=== PATIENT | male | born 1950 | race Caucasian/White ===

== ENCOUNTER 2017-10-13 12:01 | Observation (INO) | payer OTHER, MEDICARE ==
[~2017-10-13] VITALS: Ht 182.9 cm; Wt 96.9 kg
[~2017-10-13 12:01] MED LIST: CETI10TA18 PO; CITA20TA11 PO; DULO-31 PO; HYDR-565 PO; LISI40TA4 PO; MIRT15TA8 PO; SIMV20TA PO; VAL5T PO
[2017-10-13 12:29] LABS: BASOPHILS # (AUTO) 0.1 X10'3 (0-0.2); BASOPHILS % (AUTO) 0.7 % (0-1); EOSINOPHILS # (AUTO) 0.5 X10'3 (0-0.9); EOSINOPHILS % (AUTO) 4.9 % (0-6); HEMATOCRIT 48.6 % (42.0-52.0); HEMOGLOBIN 17.1 g/dl (14.0-17.9); LYMPHOCYTES # (AUTO) 2.6 X10'3 (1.1-4.8); LYMPHOCYTES % (AUTO) 27.6 % (21-51); MEAN CORPUSCULAR HEMOGLOBIN 33.1 PG (27.0-31.0); MEAN CORPUSCULAR HGB CONC 35.1 % (33.0-36.5); MEAN CORPUSCULAR VOLUME 94.4 FL (78-98); MEAN PLATELET VOLUME 7.8 FL (7.4-10.4); MONOCYTES % (AUTO) 10.4 % (2-12); NEUTROPHILS # (AUTO) 5.3 X10'3 (1.8-7.7); NEUTROPHILS % (AUTO) 56.4 % (42-75); PLATELET COUNT 209 X10'3 (140-440); RED BLOOD COUNT 5.15 X10'6 (4.70-6.10); RED CELL DISTRIBUTION WIDTH 13.3 % (11.5-14.5); WHITE BLOOD COUNT 9.5 X10'3 (4.5-11.0)
[2017-10-13 12:40] LABS: PARTIAL THROMBOPLASTIN TIME 25 SECONDS (22-32); PROTHROMBIN TIME 10.3 SECONDS (9.0-12.0)
[2017-10-13 12:44] LABS: ALANINE AMINOTRANSFERASE 72 U/L (12-78); ALBUMIN 4.3 G/DL (3.4-5.0); ALBUMIN/GLOBULIN RATIO 1.4 (1.1-1.5); ALKALINE PHOSPHATASE 83 IU/L (46-116); ANION GAP 9 (8-16); ASPARTATE AMINO TRANSFERASE 27 U/L (10-37); BILIRUBIN,TOTAL 0.9 MG/DL (0.1-1.0); BLOOD UREA NITROGEN 8 MG/DL (7-18); BUN/CREATININE RATIO 7.5 (5.4-32.0); CALCIUM 11.7 MG/DL (8.5-10.1); CHLORIDE 100 MMOL/L (99-107); CREATININE 1.06 MG/DL (0.60-1.10); GLUCOSE 150 MG/DL (70-104); POTASSIUM 3.8 MMOL/L (3.5-5.1); SODIUM 142 MMOL/L (135-145); TOTAL CARBON DIOXIDE 32.7 MMOL/L (24-32); TOTAL PROTEIN 7.4 G/DL (6.4-8.2); eGFR 70 ML/MIN
[2017-10-13] MEDS ORDERED: nitroGLYCERIN 1gm ointment UD TP ONE (13:00)
[2017-10-13] MEDS ORDERED: morphine 4 MG/ML inj SYRINge IV ONE (13:45)
[2017-10-13] MEDS ORDERED: ondansetron/PF 4mg/2ml inj IV ONE (14:00)
[2017-10-13] MEDS ORDERED: aspirin 325mg tablet PO ONE (17:25)
[2017-10-13] MEDS ORDERED: magnesium hydroxide 30ml (MOM) UD suspension PO PRN (17:25)
[2017-10-13] MEDS ORDERED: morphine 2 MG/ML inj. syringe IV PRN (17:25)
[2017-10-13] MEDS ORDERED: acetaminophen 325mg tablet PO PRN ×2 (17:25)
[2017-10-13] MEDS ORDERED: nitroGLYCERIN 0.4mg SUBLingual tab SL PRN (17:25)
[2017-10-13] MEDS ORDERED: HYDROcodone/acetaminophen 10/325mg tab PO ONE (17:45)
[2017-10-13] MEDS ORDERED: diazepam 5mg tablet PO PRN (18:30)
[2017-10-13 19:11] LABS: CHOL/HDL RATIO 4.7 (0.00-4.99); CHOLESTEROL 126 MG/DL (0-200); HDL CHOLESTEROL 27 MG/DL (35-60); LDL CHOLESTEROL 65 MG/DL (50-100); TRIGLYCERIDES 237 MG/DL (20-135)
[2017-10-13] MEDS: HYDROcodone/acetaminophen 10/325mg tab PO SCH (20:00)
[2017-10-13] MEDS: carVEDilol 3.125mg tablet PO SCH (20:20)
[2017-10-13] MEDS: morphine 2 MG/ML inj. syringe IV PRN ×2 (20:22→23:45)
[2017-10-13] MEDS ORDERED: mirtazapine 15mg tablet PO SCH (21:00)
[2017-10-13 21:10] VITALS: BP 138/89
[2017-10-13 22:00] VITALS: BP 168/93
[2017-10-13] MEDS: heparin, porcine 5000 units/ml vial SQ SCH (23:43)
[2017-10-13] MEDS: hyDRALAzine 10mg tablet PO SCH (23:44)
[2017-10-14 02:00] VITALS: BP 141/88
[2017-10-14] MEDS: morphine 2 MG/ML inj. syringe IV PRN ×2 (02:02→05:42)
[2017-10-14 06:00] VITALS: BP_SYST 125; BP_SYST 168; BP_DIAS 71; BP_DIAS 98
[2017-10-14 06:24] LABS: BASOPHILS % (AUTO) 0.3 % (0-1); EOSINOPHILS # (AUTO) 0.3 X10'3 (0-0.9); EOSINOPHILS % (AUTO) 3.6 % (0-6); HEMATOCRIT 44.7 % (42.0-52.0); HEMOGLOBIN 15.9 g/dl (14.0-17.9); LYMPHOCYTES # (AUTO) 2.4 X10'3 (1.1-4.8); MEAN CORPUSCULAR HEMOGLOBIN 33.1 PG (27.0-31.0); MEAN CORPUSCULAR HGB CONC 35.7 % (33.0-36.5); MEAN CORPUSCULAR VOLUME 92.9 FL (78-98); MEAN PLATELET VOLUME 8.2 FL (7.4-10.4); MONOCYTES # (AUTO) 0.8 X10'3 (0-0.9); MONOCYTES % (AUTO) 9.4 % (2-12); NEUTROPHILS # (AUTO) 5.2 X10'3 (1.8-7.7); NEUTROPHILS % (AUTO) 59.7 % (42-75); PLATELET COUNT 184 X10'3 (140-440); RED BLOOD COUNT 4.81 X10'6 (4.70-6.10); RED CELL DISTRIBUTION WIDTH 13.1 % (11.5-14.5); WHITE BLOOD COUNT 8.8 X10'3 (4.5-11.0)
[2017-10-14 07:15] LABS: ALANINE AMINOTRANSFERASE 91 U/L (12-78); ALBUMIN 3.9 G/DL (3.4-5.0); ALBUMIN/GLOBULIN RATIO 1.3 (1.1-1.5); ALKALINE PHOSPHATASE 73 IU/L (46-116); ANION GAP 10 (8-16); ASPARTATE AMINO TRANSFERASE 38 U/L (10-37); BLOOD UREA NITROGEN 10 MG/DL (7-18); BUN/CREATININE RATIO 9.7 (5.4-32.0); CALCIUM 9.8 MG/DL (8.5-10.1); CHLORIDE 101 MMOL/L (99-107); CREATININE 1.03 MG/DL (0.60-1.10); GLUCOSE 133 MG/DL (70-104); POTASSIUM 3.9 MMOL/L (3.5-5.1); SODIUM 141 MMOL/L (135-145); TOTAL CARBON DIOXIDE 29.9 MMOL/L (24-32); TOTAL PROTEIN 6.8 G/DL (6.4-8.2); eGFR 72 ML/MIN
[2017-10-14] MEDS ORDERED: lisinopril 20mg tablet PO SCH (08:00)
[2017-10-14] MEDS ORDERED: citalopram 20mg tablet PO SCH (08:00)
[2017-10-14] MEDS ORDERED: duloxetine 30mg CAPSULE.DR PO SCH (08:00)
[2017-10-14] MEDS ORDERED: docusate sod 250mg capsule PO SCH (08:00)
[2017-10-14] MEDS: HYDROcodone/acetaminophen 10/325mg tab PO SCH (08:00)
[2017-10-14] MEDS ORDERED: atorvastatin 10mg tablet PO SCH (08:00)
[2017-10-14] MEDS: heparin, porcine 5000 units/ml vial SQ SCH (08:01)
[2017-10-14] MEDS: hyDRALAzine 10mg tablet PO SCH (08:02)
[2017-10-14] MEDS: carVEDilol 3.125mg tablet PO SCH (08:03)
[2017-10-14 11:00] VITALS: BP 133/86
[2017-10-14] MEDS ORDERED: COR3.125T PO (14:30)
[2017-10-14] MEDS ORDERED: carVEDilol 3.125mg tablet PO ONE (14:45)
== END 2017-10-14 15:15 | disposition home or self-care (01) ==
LOC: ER 12:01 → ED HOLD 17:22 → EDBEDREQ 20:27 → PCU 3S 21:00
PROVIDERS: ADMIT Internal Medicine; ATTEND Internal Medicine
DX: R07.89 Other chest pain (principal); I10 Essential (primary) hypertension; E78.5 Hyperlipidemia, unspecified; F41.9 Anxiety disorder, unspecified; Z86.73 Personal history of transient ischemic attack (TIA), and cerebral infarction without residual deficits; Z87.891 Personal history of nicotine dependence; F43.10 Post-traumatic stress disorder, unspecified; Z85.528 Personal history of other malignant neoplasm of kidney; Z90.5 Acquired absence of kidney; R42 Dizziness and giddiness; M19.90 Unspecified osteoarthritis, unspecified site
CPT/HCPCS: 36415; 70450; 71045; 80053; 80061; 84484; 85025; 85610; 85730; 87070; 93005; 96372; 96374; 96375; 96376; 99285; G0378; J1644; J2270; J2405

== ENCOUNTER 2017-11-17 13:39 | Emergency (ER) | payer OTHER, MEDICARE ==
[~2017-11-17] VITALS: Ht 182.9 cm; Wt 113.6 kg
[~2017-11-17 13:39] MED LIST changes: -CETI10TA18 PO; +COR3.125T PO; -HYDR-565 PO
[2017-11-17 14:32] LABS: BASOPHILS # (AUTO) 0.1 X10'3 (0-0.2); BASOPHILS % (AUTO) 0.7 % (0-1); EOSINOPHILS # (AUTO) 0.3 X10'3 (0-0.9); EOSINOPHILS % (AUTO) 2.6 % (0-6); LYMPHOCYTES # (AUTO) 1.6 X10'3 (1.1-4.8); LYMPHOCYTES % (AUTO) 16.3 % (21-51); MEAN PLATELET VOLUME 7.7 FL (7.4-10.4); MONOCYTES # (AUTO) 0.8 X10'3 (0-0.9); MONOCYTES % (AUTO) 7.8 % (2-12); NEUTROPHILS # (AUTO) 7.2 X10'3 (1.8-7.7); NEUTROPHILS % (AUTO) 72.6 % (42-75); PLATELET COUNT 196 X10'3 (140-440); RED CELL DISTRIBUTION WIDTH 13.3 % (11.5-14.5); WHITE BLOOD COUNT 9.9 X10'3 (4.5-11.0)
[2017-11-17 14:42] LABS: PARTIAL THROMBOPLASTIN TIME 26 SECONDS (22-32); PROTHROMBIN TIME 10.1 SECONDS (9.0-12.0)
[2017-11-17 14:47] LABS: ALANINE AMINOTRANSFERASE 33 U/L (12-78); ALBUMIN 3.6 G/DL (3.4-5.0); ALKALINE PHOSPHATASE 92 IU/L (46-116); ANION GAP 10 (8-16); ASPARTATE AMINO TRANSFERASE 16 U/L (10-37); BILIRUBIN,TOTAL 0.8 MG/DL (0.1-1.0); BLOOD UREA NITROGEN 11 MG/DL (7-18); BUN/CREATININE RATIO 11.7 (5.4-32.0); CALCIUM 8.8 MG/DL (8.5-10.1); CHLORIDE 103 MMOL/L (99-107); CREATININE 0.94 MG/DL (0.60-1.10); GLUCOSE 141 MG/DL (70-104); MAGNESIUM 1.8 MG/DL (1.5-2.4); SODIUM 140 MMOL/L (135-145); TOTAL CARBON DIOXIDE 27.1 MMOL/L (24-32); TOTAL PROTEIN 7.1 G/DL (6.4-8.2); eGFR 80 ML/MIN
[2017-11-17 15:00] LABS: HEMATOCRIT 39.4 % (42.0-52.0); HEMOGLOBIN 13.8 g/dl (14.0-17.9); MEAN CORPUSCULAR HEMOGLOBIN 32.7 PG (27.0-31.0); MEAN CORPUSCULAR HGB CONC 35.1 % (33.0-36.5); MEAN CORPUSCULAR VOLUME 93.2 FL (78-98); RED BLOOD COUNT 4.23 X10'6 (4.70-6.10)
[2017-11-17] MEDS ORDERED: morphine 4 MG/ML inj SYRINge IV ONE ×2 (15:00→16:25)
[2017-11-17] MEDS ORDERED: furosemide 40mg/4ml inj IV ONE (16:20)
[2017-11-17] MEDS ORDERED: ipratropium/albuterol 3ml nebule NEB ONE (16:20)
[2017-11-17] MEDS ORDERED: dexamethasone 4mg tablet PO ONE (16:20)
[2017-11-17] MEDS ORDERED: HYDR-569 PO (16:24)
[2017-11-17] MEDS ORDERED: AZIT250T PO (16:24)
[2017-11-17] MEDS ORDERED: azithromycin 250mg tablet PO ONE (16:25)
[2017-11-17 18:24] VITALS: BP 146/96
== END 2017-11-17 18:27 | disposition home or self-care (01) ==
LOC: ER 13:40
DX: J40 Bronchitis, not specified as acute or chronic (principal); R07.1 Chest pain on breathing; I10 Essential (primary) hypertension; E78.00 Pure hypercholesterolemia, unspecified; Z86.73 Personal history of transient ischemic attack (TIA), and cerebral infarction without residual deficits; Z98.890 Other specified postprocedural states; Z79.899 Other long term (current) drug therapy
CPT/HCPCS: 36415; 71045; 80053; 83735; 83880; 84484; 85025; 85610; 85730; 93005; 94640; 94760; 96374; 96375; 96376; 99285; J1940; J2270; J7030; J8540

== ENCOUNTER 2019-04-19 19:59 | Observation (INO) | payer MEDICARE, OTHER ==
[~2019-04-19] VITALS: Ht 182.9 cm; Wt 100.9 kg
[~2019-04-19 19:59] MED LIST changes: +AZIT250T PO; -CITA20TA11 PO; +CITA20TA28 PO; +HYDR-4383 PO
[2019-04-19 20:22] LABS: BASOPHILS # (AUTO) 0.1 X10'3 (0-0.2); EOSINOPHILS # (AUTO) 0.4 X10'3 (0-0.9); EOSINOPHILS % (AUTO) 4.2 % (0-6); HEMATOCRIT 47.7 % (42.0-52.0); HEMOGLOBIN 16.7 g/dl (14.0-17.9); LYMPHOCYTES # (AUTO) 2.2 X10'3 (1.1-4.8); LYMPHOCYTES % (AUTO) 23.8 % (21-51); MEAN CORPUSCULAR HEMOGLOBIN 32.9 PG (27.0-31.0); MEAN CORPUSCULAR VOLUME 94.1 FL (78-98); MEAN PLATELET VOLUME 8.3 FL (7.4-10.4); MONOCYTES # (AUTO) 0.9 X10'3 (0-0.9); MONOCYTES % (AUTO) 9.2 % (2-12); NEUTROPHILS # (AUTO) 5.8 X10'3 (1.8-7.7); NEUTROPHILS % (AUTO) 61.8 % (42-75); PLATELET COUNT 237 X10'3 (140-440); RED BLOOD COUNT 5.07 X10'6 (4.70-6.10); RED CELL DISTRIBUTION WIDTH 13.5 % (11.5-14.5); WHITE BLOOD COUNT 9.3 X10'3 (4.5-11.0)
[2019-04-19 20:33] LABS: ALANINE AMINOTRANSFERASE 46 U/L (12-78); ALBUMIN 4.4 G/DL (3.4-5.0); ALBUMIN/GLOBULIN RATIO 1.3 (1.1-1.5); ALKALINE PHOSPHATASE 85 IU/L (46-116); ANION GAP 8 (8-16); ASPARTATE AMINO TRANSFERASE 19 U/L (10-37); BILIRUBIN,TOTAL 0.5 MG/DL (0.1-1.0); BLOOD UREA NITROGEN 11 MG/DL (7-18); BUN/CREATININE RATIO 10.5 (5.4-32.0); CALCIUM 9.1 MG/DL (8.5-10.1); CHLORIDE 106 MMOL/L (99-107); CREATININE 1.05 MG/DL (0.60-1.10); GLUCOSE 130 MG/DL (70-104); POTASSIUM 3.8 MMOL/L (3.5-5.1); SODIUM 144 MMOL/L (135-145); TOTAL CARBON DIOXIDE 29.7 MMOL/L (24-32); TOTAL PROTEIN 7.7 G/DL (6.4-8.2); eGFR 70 ML/MIN
[2019-04-19 20:34] LABS: PARTIAL THROMBOPLASTIN TIME 26 SECONDS (22-32)
[2019-04-19] MEDS ORDERED: ondansetron/PF 4mg/2ml inj IV ONE (22:40)
[2019-04-19] MEDS ORDERED: aspirin 81mg tab.chew PO ONE (22:40)
[2019-04-19] MEDS ORDERED: morphine 4 MG/ML inj SYRINge IV ONE (22:40)
[2019-04-19] MEDS ORDERED: nitroGLYCERIN 1gm ointment UD TP ONE (22:40)
[2019-04-19] MEDS ORDERED: HYDR-4353 PO (22:53)
[2019-04-20] VITALS (11 sets, daily range): BP systolic 125–160; BP diastolic 80–97
[2019-04-20] MEDS ORDERED: ondansetron/PF 4mg/2ml inj IV PRN (01:10)
[2019-04-20] MEDS ORDERED: diazepam 5mg tablet PO PRN (01:10)
--- NOTE | 2019-04-20 02:15 | NUR ---
Patient brought up to unit via gurney and was able to ambulate to bed. Pt still c/o chest pain and states it has not gone away since he came to the hospital. Vitals are stable
[2019-04-20] MEDS: normal saline 1000ml 1,000 ML IV SCH ×2 (02:25→21:06)
[2019-04-20] MEDS: HYDROcodone/acetaminophen 10/325mg tab PO PRN ×4 (02:34→19:34)
--- NOTE | 2019-04-20 06:52 | NUR ---
Problems reprioritized. Patient report given, questions answered & plan of care reviewed with RENETTA Palmer.
[2019-04-20] MEDS: heparin, porcine 5000 units/ml vial SQ SCH ×2 (07:58→19:33)
[2019-04-20] MEDS: atorvastatin 10mg tablet PO SCH (07:59)
[2019-04-20] MEDS: duloxetine 30mg CAPSULE.DR PO SCH (07:59)
[2019-04-20] MEDS: lisinopril 20mg tablet PO SCH (07:59)
[2019-04-20] MEDS: citalopram 20mg tablet PO SCH (07:59)
[2019-04-20 09:50] LABS: URINE AMPHETAMINE SCREEN NEGATIVE (Neg); URINE BARBITUATE SCREEN NEGATIVE (Neg); URINE BENZODIAZEPINES SCREEN POSITIVE (Neg); URINE CANNABINOID SCREEN NEGATIVE (Neg); URINE COCAINE SCREEN NEGATIVE (Neg); URINE METHADONE SCREEN NEGATIVE (Neg); URINE OPIATE SCREEN POSITIVE (Neg); URINE PHENCYCLIDINE SCREEN NEGATIVE (Neg)
[2019-04-20] MEDS ORDERED: metoprolol tartrate 1mg/ml inj IV PRN (10:55)
[2019-04-20] MEDS ORDERED: regadenoson 0.4mg/5ml syringe IV ONE (10:55)
[2019-04-20] MEDS ORDERED: aminophylline 250mg/10ml inj. IV PRN (10:55)
[2019-04-20] MEDS ORDERED: nitroGLYCERIN 0.4mg SUBLingual tab SL PRN (11:00)
--- NOTE | 2019-04-20 17:42 | NUR ---
Pt does not have ride home until tomorrow, Dr Almanzar aware.
--- NOTE | 2019-04-20 18:25 | NUR ---
Problems reprioritized. Patient report given, questions answered & plan of care reviewed with Ted JACKSON. Pt eating dinner, doing well. Talkative
[2019-04-20] MEDS ORDERED: mirtazapine 15mg tablet PO SCH (21:00)
[2019-04-21 05:45] LABS: BASOPHILS # (AUTO) 0.1 X10'3 (0-0.2); BASOPHILS % (AUTO) 0.9 % (0-1); EOSINOPHILS # (AUTO) 0.4 X10'3 (0-0.9); EOSINOPHILS % (AUTO) 5.1 % (0-6); HEMATOCRIT 44.1 % (42.0-52.0); HEMOGLOBIN 15.1 g/dl (14.0-17.9); LYMPHOCYTES # (AUTO) 2.3 X10'3 (1.1-4.8); LYMPHOCYTES % (AUTO) 31.5 % (21-51); MEAN CORPUSCULAR HEMOGLOBIN 32.6 PG (27.0-31.0); MEAN CORPUSCULAR HGB CONC 34.2 g/dL (33.0-36.5); MEAN CORPUSCULAR VOLUME 95.2 FL (78-98); MEAN PLATELET VOLUME 8.6 FL (7.4-10.4); MONOCYTES # (AUTO) 0.6 X10'3 (0-0.9); NEUTROPHILS # (AUTO) 3.9 X10'3 (1.8-7.7); NEUTROPHILS % (AUTO) 53.5 % (42-75); PLATELET COUNT 187 X10'3 (140-440); RED BLOOD COUNT 4.63 X10'6 (4.70-6.10); RED CELL DISTRIBUTION WIDTH 13.3 % (11.5-14.5); WHITE BLOOD COUNT 7.2 X10'3 (4.5-11.0)
[2019-04-21 05:58] LABS: ALANINE AMINOTRANSFERASE 41 U/L (12-78); ALBUMIN 3.7 G/DL (3.4-5.0); ALBUMIN/GLOBULIN RATIO 1.2 (1.1-1.5); ANION GAP 6 (8-16); ASPARTATE AMINO TRANSFERASE 17 U/L (10-37); BILIRUBIN,TOTAL 0.7 MG/DL (0.1-1.0); BLOOD UREA NITROGEN 9 MG/DL (7-18); BUN/CREATININE RATIO 8.8 (5.4-32.0); CALCIUM 8.5 MG/DL (8.5-10.1); CHLORIDE 106 MMOL/L (99-107); CREATININE 1.02 MG/DL (0.60-1.10); GLUCOSE 113 MG/DL (70-104); POTASSIUM 4.3 MMOL/L (3.5-5.1); SODIUM 142 MMOL/L (135-145); TOTAL CARBON DIOXIDE 30.1 MMOL/L (24-32); TOTAL PROTEIN 6.7 G/DL (6.4-8.2); eGFR 73 ML/MIN
[2019-04-21 06:03] LABS: ALKALINE PHOSPHATASE 72 IU/L (46-116)
--- NOTE | 2019-04-21 06:20 | NUR ---
Problems reprioritized. Patient report given, questions answered & plan of care reviewed with Caitlyn. Addendum: 04/21/19 at 0621 by Stoney Lazo RN Amended: Links added.
[2019-04-21] MEDS: duloxetine 30mg CAPSULE.DR PO SCH (08:13)
[2019-04-21] MEDS: lisinopril 20mg tablet PO SCH (08:13)
[2019-04-21] MEDS: atorvastatin 10mg tablet PO SCH (08:14)
[2019-04-21] MEDS: citalopram 20mg tablet PO SCH (08:14)
[2019-04-21] MEDS: heparin, porcine 5000 units/ml vial SQ SCH (08:14)
[2019-04-21] MEDS: HYDROcodone/acetaminophen 10/325mg tab PO PRN (08:20)
[2019-04-21 08:48] VITALS: BP 159/89
--- NOTE | 2019-04-21 10:07 | NUR ---
PT DISCHARGED IN STABLE CONDITION. LEFT FACILITY IN PRIVATE VEHICLE. FOLLOW UP INSTRUCTIONS GIVEN, ALL QUESTIONS ANSWERED. ALL BELONGINGS IN HAND. Addendum: 04/21/19 at 1007 by Geni Rodriges RN Amended: Links added.
== END 2019-04-21 10:00 | disposition home or self-care (01) ==
LOC: ER 20:00 → SUR 3N 04-20 02:06
PROVIDERS: ADMIT Internal Medicine; ATTEND Internal Medicine
DX: R07.89 Other chest pain (principal); I10 Essential (primary) hypertension; E78.00 Pure hypercholesterolemia, unspecified; F41.9 Anxiety disorder, unspecified; M19.90 Unspecified osteoarthritis, unspecified site; C64.9 Malignant neoplasm of unspecified kidney, except renal pelvis; Z86.73 Personal history of transient ischemic attack (TIA), and cerebral infarction without residual deficits
CPT/HCPCS: 36415; 71045; 78452; 80053; 80305; 84484; 85025; 85610; 85730; 87081; 93005; 93017; 93306; 96372; 96374; 96375; 99284; A9500; G0378; J1644; J2270; J2405; J2785; J7030

== ENCOUNTER 2019-04-28 12:34 | Emergency (ER) | payer MEDICARE, OTHER ==
[~2019-04-28 12:34] MED LIST changes: -AZIT250T PO; -COR3.125T PO; -HYDR-4383 PO; -VAL5T PO
== END 2019-04-28 13:32 | disposition left against medical advice (07) ==
LOC: ER 12:35
DX: R51 Headache (principal); Z53.21 Procedure and treatment not carried out due to patient leaving prior to being seen by health care provider

== ENCOUNTER 2019-07-13 15:54 | Emergency (ER) | payer MEDICARE, OTHER ==
[~2019-07-13] VITALS: Ht 185.4 cm; Wt 90.0 kg
[2019-07-13 16:02] VITALS: BP 135/76
[2019-07-13] MEDS ORDERED: proparacaine 0.5% ophthalmic drops 15ml EACHEYE ONE (16:10)
[2019-07-13] MEDS ORDERED: OFLO5DRO EACHEYE (16:51)
[2019-07-13] MEDS ORDERED: PRED5DRO23 OP (16:51)
== END 2019-07-13 17:21 | disposition home or self-care (01) ==
LOC: ER 15:54
DX: T86.840 Corneal transplant rejection (principal); H57.12 Ocular pain, left eye; E78.00 Pure hypercholesterolemia, unspecified; I10 Essential (primary) hypertension; F41.9 Anxiety disorder, unspecified; M19.90 Unspecified osteoarthritis, unspecified site; Z79.899 Other long term (current) drug therapy; Z86.73 Personal history of transient ischemic attack (TIA), and cerebral infarction without residual deficits; Z98.890 Other specified postprocedural states; Y92.89 Other specified places as the place of occurrence of the external cause
CPT/HCPCS: 99283

== ENCOUNTER 2020-03-18 12:39 | Observation (INO) | payer OTHER, MEDICARE ==
[~2020-03-18] VITALS: Ht 185.4 cm; Wt 108.0 kg
[~2020-03-18 12:39] MED LIST changes: +BENZ200C59 PO; +CEFU500T66 PO; -CITA20TA28 PO; +HYDR-4384 PO; +PRED20TA PO; +SERT25TA PO; -SIMV20TA PO; +VAL5T PO
[2020-03-18 13:00] LABS: BASOPHILS # (AUTO) 0.1 X10'3 (0-0.2); BASOPHILS % (AUTO) 0.8 % (0-1); EOSINOPHILS # (AUTO) 0.2 X10'3 (0-0.9); EOSINOPHILS % (AUTO) 3.2 % (0-6); HEMATOCRIT 50.4 % (42.0-52.0); HEMOGLOBIN 17.5 g/dl (14.0-17.9); LYMPHOCYTES # (AUTO) 2.1 X10'3 (1.1-4.8); MEAN CORPUSCULAR HEMOGLOBIN 32.9 PG (27.0-31.0); MEAN CORPUSCULAR HGB CONC 34.8 g/dL (33.0-36.5); MEAN CORPUSCULAR VOLUME 94.5 FL (78-98); MEAN PLATELET VOLUME 7.6 FL (7.4-10.4); MONOCYTES # (AUTO) 0.6 X10'3 (0-0.9); MONOCYTES % (AUTO) 8.1 % (2-12); NEUTROPHILS # (AUTO) 4.9 X10'3 (1.8-7.7); NEUTROPHILS % (AUTO) 61.9 % (42-75); PLATELET COUNT 240 X10'3 (140-440); RED BLOOD COUNT 5.33 X10'6 (4.70-6.10); RED CELL DISTRIBUTION WIDTH 12.6 % (11.5-14.5); WHITE BLOOD COUNT 7.9 X10'3 (4.5-11.0)
[2020-03-18 13:12] LABS: ALANINE AMINOTRANSFERASE 43 U/L (12-78); ALBUMIN 4.5 G/DL (3.4-5.0); ALBUMIN/GLOBULIN RATIO 1.3 (1.1-1.5); ALKALINE PHOSPHATASE 72 IU/L (46-116); ANION GAP 13 (8-16); ASPARTATE AMINO TRANSFERASE 22 U/L (10-37); BILIRUBIN,TOTAL 0.8 MG/DL (0.1-1.0); BLOOD UREA NITROGEN 11 MG/DL (7-18); BUN/CREATININE RATIO 10.7 (5.4-32.0); CALCIUM 9.1 MG/DL (8.5-10.1); CHLORIDE 104 MMOL/L (99-107); CREATININE 1.03 MG/DL (0.60-1.10); GLUCOSE 116 MG/DL (70-104); POTASSIUM 4.2 MMOL/L (3.5-5.1); SODIUM 141 MMOL/L (135-145); TOTAL CARBON DIOXIDE 24.3 MMOL/L (24-32); TOTAL PROTEIN 7.9 G/DL (6.4-8.2); eGFR 72 ML/MIN
[2020-03-18] MEDS ORDERED: AMLO5TAB PO (15:17)
[2020-03-18] MEDS ORDERED: normal saline 1000ml 1,000 ML IV SCH (15:18)
[2020-03-18] MEDS ORDERED: acetaminophen 325mg tablet PO PRN ×2 (15:20)
[2020-03-18] MEDS ORDERED: mag hydrox/Alum hydrox/simeth 30ml oral suspension PO PRN (15:20)
[2020-03-18] MEDS ORDERED: magnesium 2GM in 50ml NS 50 ML IV PRN (15:20)
[2020-03-18] MEDS ORDERED: HYDROcodone/acetaminophen 5mg/325mg tablet PO PRN (15:20)
[2020-03-18] MEDS ORDERED: magnesium hydroxide 30ml (MOM) UD suspension PO PRN (15:20)
[2020-03-18] MEDS ORDERED: metoclopramide 5 mg/ml inj IV PRN (15:20)
[2020-03-18] MEDS ORDERED: potassium Cl 20 mEq SR tablet PO PRN (15:20)
[2020-03-18] MEDS ORDERED: magnesium Cl slow-release 64mg tablet PO PRN (15:20)
[2020-03-18] MEDS ORDERED: magnesium 4gm in 100ml NS 100 ML IV PRN (15:20)
[2020-03-18] MEDS ORDERED: potassium CL 10mEq/100ml bag 100 ML IV PRN ×2 (15:20)
[2020-03-18] MEDS ORDERED: ondansetron/PF 4mg/2ml inj IV PRN (15:20)
[2020-03-18] MEDS ORDERED: bisacodyl 10mg suppository rectal RC PRN (15:20)
--- NOTE | 2020-03-18 15:45 | NUR ---
relieving RN for break, pt is being evaluated by hospitalist, started IV on rt hand on first attempt, 2nd troponin drawn
[2020-03-18] MEDS ORDERED: iohexol 350MG/ML 100ml bottle IV ONE (17:20)
--- NOTE | 2020-03-18 17:59 | NUR ---
Patient in room ED 3. I have received report from Rohan JACKSON and had the opportunity to ask questions and assume patient care.
[2020-03-18] MEDS ORDERED: HYDROCODONE BIT PO PRN (18:25)
[2020-03-18] MEDS ORDERED: ACETAMINOPHEN PO PRN (18:25)
[2020-03-18] MEDS ORDERED: diazepam 5mg tablet PO PRN (18:25)
--- NOTE | 2020-03-18 18:30 | NUR ---
Patient report given to Chel Gentile RN
--- NOTE | 2020-03-18 18:39 | NUR ---
Problems reprioritized. Patient report given, questions answered & plan of care reviewed with KRISHAN JACKSON.
[2020-03-18 19:00] VITALS: BP 166/103
[2020-03-18] MEDS: HYDROcodone/acetaminophen 10/325mg tab PO PRN ×2 (19:06→23:07)
[2020-03-18] MEDS: K and/or MAG REPLACEMENT MC SCH (20:53)
[2020-03-18] MEDS ORDERED: temazepam 15mg capsule PO PRN (21:00)
[2020-03-18] MEDS ORDERED: mirtazapine 15mg tablet PO SCH (21:00)
[2020-03-18 22:00] VITALS: BP 143/90
[2020-03-19] MEDS: HYDROcodone/acetaminophen 10/325mg tab PO PRN ×4 (04:50→18:50)
[2020-03-19 06:00] VITALS: BP 130/78
--- NOTE | 2020-03-19 06:25 | NUR ---
Patient in room ORTHO 4022. I have received report from Chel Rincon and had the opportunity to ask questions and assume patient care.
[2020-03-19 06:36] LABS: HEMATOCRIT 44.3 % (42.0-52.0); HEMOGLOBIN 15.4 g/dl (14.0-17.9); MEAN CORPUSCULAR HEMOGLOBIN 33.2 PG (27.0-31.0); MEAN CORPUSCULAR HGB CONC 34.7 g/dL (33.0-36.5); MEAN CORPUSCULAR VOLUME 95.8 FL (78-98); MEAN PLATELET VOLUME 7.9 FL (7.4-10.4); PLATELET COUNT 206 X10'3 (140-440); RED BLOOD COUNT 4.63 X10'6 (4.70-6.10); RED CELL DISTRIBUTION WIDTH 12.9 % (11.5-14.5); WHITE BLOOD COUNT 7.8 X10'3 (4.5-11.0)
[2020-03-19 06:54] LABS: ALBUMIN 3.8 G/DL (3.4-5.0); ANION GAP 5 (8-16); BLOOD UREA NITROGEN 15 MG/DL (7-18); BUN/CREATININE RATIO 12.7 (5.4-32.0); CALCIUM 8.9 MG/DL (8.5-10.1); CHLORIDE 103 MMOL/L (99-107); CREATININE 1.18 MG/DL (0.60-1.10); GLUCOSE 144 MG/DL (70-104); MAGNESIUM 2.1 MG/DL (1.5-2.4); POTASSIUM 3.4 MMOL/L (3.5-5.1); SODIUM 138 MMOL/L (135-145); TOTAL CARBON DIOXIDE 30.2 MMOL/L (24-32); eGFR 61 ML/MIN
[2020-03-19 08:00] VITALS: BP_SYST 121; BP_SYST 130; BP_SYST 147; BP_DIAS 78; BP_DIAS 80; BP_DIAS 93
[2020-03-19] MEDS ORDERED: duloxetine 30mg CAPSULE.DR PO SCH (08:00)
[2020-03-19] MEDS ORDERED: sertraline 25mg tablet PO SCH (08:00)
[2020-03-19] MEDS ORDERED: lisinopril 20mg tablet PO SCH (08:00)
[2020-03-19] MEDS ORDERED: amLODIPine 5mg tablet PO SCH ×2 (08:00)
[2020-03-19] MEDS: K and/or MAG REPLACEMENT MC SCH (08:00)
[2020-03-19] MEDS ORDERED: enoxaparin 40mg/0.4ml syringe SQ SCH (08:00)
[2020-03-19 09:00] VITALS: BP 143/89
[2020-03-19] MEDS: potassium Cl 20 mEq SR tablet PO PRN ×3 (09:10→18:49)
[2020-03-19 10:00] VITALS: BP 143/89
[2020-03-19] MEDS ORDERED: pneumococcal 23-VAL P-sac vacc 25 mcg/0.5ml vial IMVAC ONE (10:00)
--- NOTE | 2020-03-19 15:46 | NUR ---
PAGER ID: [phone] MESSAGE: Estela Mcgovern on ortho, Mr. Handy in [id number], no EEG report yet, pt anxious to be DC'd, just BREA
--- NOTE | 2020-03-19 17:24 | NUR ---
PAGER ID: [phone] MESSAGE: Estela Mcgovern on ortho, for Mr. Handy in 5410C, both tests were done, MRI results are coming
--- NOTE | 2020-03-19 18:19 | NUR ---
PAGER ID: [phone] MESSAGE: Estela Mcgovern on ortho, MRI report is being printed and brought to ortho
--- NOTE | 2020-03-19 18:23 | NUR ---
Problems reprioritized. Patient report given, questions answered & plan of care reviewed with Chel Rincon
--- NOTE | 2020-03-19 18:25 | NUR ---
Received report from Estela JACKSON, assumed care of patient.
--- NOTE | 2020-03-19 18:45 | NUR ---
MD Davidson at bedside with patient, new orders received for discharge.
--- NOTE | 2020-03-19 19:15 | NUR ---
Reviewed discharge paperwork with patient including, to continue current medications, [facility], if condition worsens to return to ER. Patient verbalized understanding at this time. PIV to right hand was discontinued and Tele box was removed. Patient stated he had all belongings prior to being escorted down to his waiting in front of the hospital without incident.
== END 2020-03-19 19:12 | disposition home or self-care (01) ==
LOC: ER 12:39 → ED HOLD 15:18 → ORTHO 4S 18:00
PROVIDERS: ADMIT Family Medicine; ATTEND Family Medicine
DX: R55 Syncope and collapse (principal); R07.89 Other chest pain; G47.33 Obstructive sleep apnea (adult) (pediatric); I10 Essential (primary) hypertension; F43.10 Post-traumatic stress disorder, unspecified; G40.909 Epilepsy, unspecified, not intractable, without status epilepticus; E78.00 Pure hypercholesterolemia, unspecified; J44.9 Chronic obstructive pulmonary disease, unspecified; F41.9 Anxiety disorder, unspecified; M19.90 Unspecified osteoarthritis, unspecified site; Z23 Encounter for immunization; Z86.73 Personal history of transient ischemic attack (TIA), and cerebral infarction without residual deficits; Z85.528 Personal history of other malignant neoplasm of kidney; Z85.820 Personal history of malignant melanoma of skin; Z99.89 Dependence on other enabling machines and devices; Z86.010 Personal history of colon polyps; Z90.5 Acquired absence of kidney; Z94.7 Corneal transplant status; Z90.49 Acquired absence of other specified parts of digestive tract; Z79.899 Other long term (current) drug therapy
CPT/HCPCS: 36415; 70496; 70498; 70544; 70551; 71045; 80048; 80053; 83735; 83880; 84484; 85025; 85027; 87081; 90732; 93005; 95816; 96360; 96361; 96372; 97161; 97530; 99285; G0009; G0378; J7030; Q9967; J1650

== ENCOUNTER 2020-08-06 11:20 | Emergency (ER) | payer OTHER, MEDICARE ==
[~2020-08-06] VITALS: Ht 182.9 cm; Wt 89.1 kg
[~2020-08-06 11:20] MED LIST changes: +AMLO5TAB PO; -BENZ200C59 PO; -CEFU500T66 PO; -PRED20TA PO
[2020-08-06 11:24] VITALS: BP 141/97
[2020-08-06] MEDS ORDERED: HYDR-4353 PO (12:57)
[2020-08-06] MEDS ORDERED: HYDROcodone/acetaminophen 10/325mg tab PO ONE (13:00)
== END 2020-08-06 13:30 | disposition home or self-care (01) ==
LOC: ER 11:21
DX: M25.552 Pain in left hip (principal); I11.0 Hypertensive heart disease with heart failure; E78.00 Pure hypercholesterolemia, unspecified; J44.9 Chronic obstructive pulmonary disease, unspecified; Z98.890 Other specified postprocedural states; Z79.899 Other long term (current) drug therapy; W18.39XA Other fall on same level, initial encounter; Y93.89 Activity, other specified; Y92.89 Other specified places as the place of occurrence of the external cause; Y99.8 Other external cause status
CPT/HCPCS: 73502; 99284

== ENCOUNTER 2021-01-05 20:47 | Emergency (ER) | payer OTHER, MEDICARE ==
[~2021-01-05] VITALS: Ht 182.9 cm; Wt 94.0 kg
[~2021-01-05 20:47] MED LIST changes: +DIAZ5TAB22 PO; +LISI40TA13 PO; -LISI40TA4 PO; -VAL5T PO
[2021-01-05 22:03] VITALS: BP 136/79
[2021-01-05 22:47] LABS: BASOPHILS # (AUTO) 0.1 X10'3 (0-0.2); BASOPHILS % (AUTO) 0.7 % (0-1); EOSINOPHILS # (AUTO) 0.2 X10'3 (0-0.9); EOSINOPHILS % (AUTO) 2.7 % (0-6); HEMATOCRIT 46.3 % (42.0-52.0); HEMOGLOBIN 16.3 g/dl (14.0-17.9); MEAN CORPUSCULAR HEMOGLOBIN 32.2 PG (27.0-31.0); MEAN CORPUSCULAR HGB CONC 35.2 g/dL (33.0-36.5); MEAN CORPUSCULAR VOLUME 91.4 FL (78-98); MEAN PLATELET VOLUME 8.1 FL (7.4-10.4); MONOCYTES # (AUTO) 0.8 X10'3 (0-0.9); MONOCYTES % (AUTO) 9.1 % (2-12); NEUTROPHILS % (AUTO) 65.5 % (42-75); PLATELET COUNT 260 X10'3 (140-440); RED BLOOD COUNT 5.07 X10'6 (4.70-6.10); RED CELL DISTRIBUTION WIDTH 13.7 % (11.5-14.5); WHITE BLOOD COUNT 9.1 X10'3 (4.5-11.0)
[2021-01-05 22:56] LABS: PARTIAL THROMBOPLASTIN TIME 26 SECONDS (22-32)
[2021-01-05 22:59] LABS: ALANINE AMINOTRANSFERASE 38 U/L (12-78); ALBUMIN 4.2 G/DL (3.4-5.0); ALBUMIN/GLOBULIN RATIO 1.2 (1.1-1.5); ALKALINE PHOSPHATASE 111 IU/L (46-116); ANION GAP 6 (8-16); ASPARTATE AMINO TRANSFERASE 21 U/L (10-37); BILIRUBIN,TOTAL 0.7 MG/DL (0.1-1.0); BLOOD UREA NITROGEN 8 MG/DL (7-18); BUN/CREATININE RATIO 8.7 (5.4-32.0); CALCIUM 9.2 MG/DL (8.5-10.1); CHLORIDE 102 MMOL/L (99-107); CREATININE 0.92 MG/DL (0.60-1.10); POTASSIUM 3.7 MMOL/L (3.5-5.1); SODIUM 142 MMOL/L (135-145); TOTAL CARBON DIOXIDE 33.7 MMOL/L (24-32); TOTAL PROTEIN 7.7 G/DL (6.4-8.2); eGFR 82 ML/MIN
[2021-01-05 23:05] LABS: GLUCOSE 158 MG/DL (70-104)
[2021-01-05] MEDS ORDERED: aspirin 325mg tablet PO ONE (23:30)
== END 2021-01-06 00:14 | disposition home or self-care (01) ==
LOC: ER 20:47
DX: I63.9 Cerebral infarction, unspecified (principal); I10 Essential (primary) hypertension; R51.9 Headache, unspecified; R53.1 Weakness; E78.00 Pure hypercholesterolemia, unspecified; J44.9 Chronic obstructive pulmonary disease, unspecified; M19.90 Unspecified osteoarthritis, unspecified site; F41.9 Anxiety disorder, unspecified; Z86.73 Personal history of transient ischemic attack (TIA), and cerebral infarction without residual deficits; Z98.890 Other specified postprocedural states; Z72.89 Other problems related to lifestyle; Z79.899 Other long term (current) drug therapy
CPT/HCPCS: 36415; 70450; 71045; 80053; 85025; 85610; 85730; 93005; 99285

== ENCOUNTER 2022-08-31 18:47 | Emergency (ER) | payer OTHER, MEDICARE ==
[~2022-08-31] VITALS: Ht 182.9 cm; Wt 102.3 kg
[~2022-08-31 18:47] MED LIST changes: +MIRT-87 PO; -MIRT15TA8 PO
[2022-08-31 19:03] LABS: BASOPHILS # (AUTO) 0.1 X10'3 (0-0.2); BASOPHILS % (AUTO) 0.5 % (0-1); EOSINOPHILS # (AUTO) 0.1 X10'3 (0-0.9); EOSINOPHILS % (AUTO) 1.1 % (0-6); HEMATOCRIT 50.5 % (42.0-52.0); HEMOGLOBIN 17.4 g/dl (14.0-17.9); LYMPHOCYTES % (AUTO) 20.1 % (21-51); MEAN CORPUSCULAR HEMOGLOBIN 31.5 PG (27.0-31.0); MEAN CORPUSCULAR HGB CONC 34.4 g/dL (33.0-36.5); MEAN CORPUSCULAR VOLUME 91.6 FL (78-98); MEAN PLATELET VOLUME 7.1 FL (7.4-10.4); MONOCYTES % (AUTO) 9.6 % (2-12); NEUTROPHILS # (AUTO) 6.9 X10'3 (1.8-7.7); NEUTROPHILS % (AUTO) 68.7 % (42-75); PLATELET COUNT 289 X10'3 (140-440); RED BLOOD COUNT 5.52 X10'6 (4.70-6.10); RED CELL DISTRIBUTION WIDTH 13.6 % (11.5-14.5)
[2022-08-31 19:19] VITALS: BP 165/106
[2022-08-31 19:23] LABS: ALANINE AMINOTRANSFERASE 29 U/L (12-78); ALBUMIN 4.8 G/DL (3.4-5.0); ALBUMIN/GLOBULIN RATIO 1.5 (1.1-1.5); ALKALINE PHOSPHATASE 95 IU/L (46-116); ANION GAP 10 (8-16); ASPARTATE AMINO TRANSFERASE 21 U/L (10-37); BILIRUBIN,TOTAL 1.2 MG/DL (0.1-1.0); BLOOD UREA NITROGEN 9 MG/DL (7-18); BUN/CREATININE RATIO 7.9 (5.4-32.0); CALCIUM 9.2 MG/DL (8.5-10.1); CHLORIDE 100 MMOL/L (99-107); CREATININE 1.14 MG/DL (0.60-1.10); GLUCOSE 117 MG/DL (70-104); MAGNESIUM 1.8 MG/DL (1.5-2.4); POTASSIUM 3.8 MMOL/L (3.5-5.1); SODIUM 138 MMOL/L (135-145); TOTAL CARBON DIOXIDE 28.5 MMOL/L (24-32); TOTAL PROTEIN 8.1 G/DL (6.4-8.2); eGFR 64 ML/MIN
== END 2022-08-31 21:04 | disposition left against medical advice (07) ==
LOC: ER 18:47
DX: R07.9 Chest pain, unspecified (principal); Z53.21 Procedure and treatment not carried out due to patient leaving prior to being seen by health care provider
CPT/HCPCS: 36415; 71045; 80053; 83735; 83880; 84484; 85025

== ENCOUNTER 2024-10-11 21:08 | Emergency (ER) | payer OTHER, MEDICARE ==
[~2024-10-11] VITALS: Ht 182.9 cm; Wt 97.7 kg
[~2024-10-11 21:08] MED LIST changes: -DIAZ5TAB22 PO
[2024-10-11 21:12] VITALS: BP 143/94; PULSE 74; RESP 17; O2SAT 95
[2024-10-11] MEDS: methylPREDNISolone acetate 80mg/ml inj**IM only IM ONE (22:41)
[2024-10-11] MEDS: LIDOcaine 1% W/epiNEPHrine 1:100,000 20ml vial SQ ONE (22:41)
[2024-10-11 22:44] VITALS: TEMP 98
== END 2024-10-11 22:44 | disposition home or self-care (01) ==
LOC: ER 21:09
DX: M65.4 Radial styloid tenosynovitis [de Quervain] (principal); J44.9 Chronic obstructive pulmonary disease, unspecified; I10 Essential (primary) hypertension; G47.30 Sleep apnea, unspecified; E78.00 Pure hypercholesterolemia, unspecified; F41.9 Anxiety disorder, unspecified; M19.90 Unspecified osteoarthritis, unspecified site; Z85.118 Personal history of other malignant neoplasm of bronchus and lung; Z86.73 Personal history of transient ischemic attack (TIA), and cerebral infarction without residual deficits; Z79.899 Other long term (current) drug therapy; Z72.89 Other problems related to lifestyle; W18.39XA Other fall on same level, initial encounter; Y93.89 Activity, other specified; Y92.89 Other specified places as the place of occurrence of the external cause; Y99.8 Other external cause status
CPT/HCPCS: 73110; 96372; 99284